=== PATIENT | male | born 1950 | race Caucasian/White ===

== ENCOUNTER 2016-12-05 08:58 | Observation (INO) | payer MEDICARE ==
[~2016-12-05] VITALS: Ht 175.3 cm; Wt 123.2 kg
--- NOTE | ~2016-12-05 | HEMODYNAMI ---
PATIENT:PAULINO AUSTIN MEDICAL RECORD: [id number] : 52 [id number] ADMISSION DATE: 12/05/16 Generatedon:12/06/20169:09 Patient name: PAULINO AUSTIN Patient #: [id number] SSN: : 1950 Date of study: 12/06/2016 Page: Of Hemodynamic Procedure Report Patient Data Patient Demographics Procedure consent was obtained First Name: PAULINO Gender: Male Last Name: NORMAN : 1950 Middle Initial: CARLA Age: 66 year(s) Patient #: [id number] Race: Unknown Additional ID: [id number] Contact details Address: [address] [place] [address] State: [place] City: [place] Zip code: [address] Admission Admission Data Admission Date: 12/05/2016 Admission Time: 13:29 Room #: D.2117 Procedure Procedure Types Cath Procedure Diagnostic Procedure LHC LHC w/Coronaries FFR/IVUS Intra-Coronary IVUS Initial Miscellaneous Procedures Moderate Sedation up to 15 minutes Procedure Description Procedure Date Procedure Date: 12/06/2016 Procedure Start Time: 8:54 Procedure End Time: 9:08 Procedure Staff Name Function Atif Neal MD Performing Physician Diamante Castro RN Nurse Jerry Lopez RT Monitor Mckenna Bhagat RT Scrub Procedure Data Cath Procedure Fluoroscopy Diagnostic fluoroscopy Total fluoroscopy Time: 2.8 time: 2.8 min min Diagnostic fluoroscopy Total fluoroscopy dose: 706 dose: 706 mGy mGy Contrast Material Contrast Material Type Amount (ml) Isovue 300 61 Entry Location Entry Primary Successful Side Size Upsize Upsize Entry Closure Succes sful Closure Location (Fr) 1 (Fr) 2 (Fr) Remarks Device Remarks Femoral Right 5 Fr Exoseal artery Estimated blood loss: 10 ml Diagnostic catheters Device Type Used For End Catheter Placement Cordis 5Fr Pigtail Procedure Catheter (MP) Cordis 5Fr JL 4.0 Procedure Catheter (MP) Cordis 5Fr 3DRC Catheter Procedure (MP) Procedure Complications No complications Procedure Medications Medication Administration Route Dosage Plavix P.O. 75 mg Oxygen NC 2 l/min Heparin Flush Bag added to field 2 bags (1000units/500ml NS) Lidocaine 2% added to field 20 Versed I.V. 1 mg Fentanyl I.V. 50 mcg Versed I.V. 1 mg Fentanyl I.V. 50 mcg Versed I.V. 1 mg Fentanyl I.V. 50 mcg Versed I.V. 1 mg Fentanyl I.V. 50 mcg Hemodynamics Rest Heart Rate: 53 (bpm) Pressure Samples Time Site Value (mmHg) Purpose Heart Use Rate(bpm) 9:01 AO 121/83(99) Snapshot 64 Snapshots Pre Cath Intra NCS Post Cath Vital Signs Time Heart Resp SPO2 NIBP (mmHg) Rhythm Pain Sedation Rate (ipm) (%) Status Level (bpm) 8:26:19 51 16 97 153/87(135) SB 0 (11) 10(A) , No pain 8:30:33 53 18 98 155/91(134) SB 0 (11) 10(A) , No pain 8:34:49 53 16 97 152/90(134) SB 0 (11) 10(A) , No pain 8:39:03 54 20 96 146/88(121) SB 0 (11) 10(A) , No pain 8:43:19 58 23 96 151/87(108) SB 0 (11) 10(A) , No pain 8:47:33 59 16 95 145/83(121) SB 0 (11) 10(A) , No pain 8:51:47 58 18 96 140/84(127) SB 0 (11) 10(A) , No pain 8:55:57 57 16 95 135/87(105) SB 0 (11) 9(A) , No pain 9:00:07 58 16 95 150/89(106) SB 0 (11) 9(A) , No pain 9:04:17 67 19 96 138/90(114) SB 0 (11) 9(A) , No pain 9:08:29 59 9 93 131/80(115) SB 0 (11) 9(A) , No pain Medications Time Medication Route Dose Verified Delivered Reason Notes Eff ectiveness by by 8:21:07 Plavix P.O. 75 mg Atif Vossca for Ángel Castro RN antiplatelet therapy 8:28:36 Oxygen NC 2 Atif Diamante Per l/min Ángel Castro RN physician 8:28:43 Heparin Flush added 2 Atif Atif used for Bag to bags Ángel Neal MD procedure (1000units/500ml field NS) 8:28:50 Lidocaine 2% added 20ml Atif Atif used for to vial Ángel Neal MD procedure field 8:46:42 Versed I.V. 1 mg Atif Diamante for sedation Ángel Castro RN 8:46:48 Fentanyl I.V. 50 Atif Diamante for sedation mcg Ángel Castro RN 8:48:37 Versed I.V. 1 mg Atif Diamante for sedation Ángel Castro RN 8:48:45 Fentanyl I.V. 50 Atif Diamante for sedation mcg Ángel Castro RN 8:51:33 Versed I.V. 1 mg Atif Diamante for sedation Ángel Castro RN 8:51:36 Fentanyl I.V. 50 Atif Diamante for sedation mcg Ángel Castro RN 8:54:04 Versed I.V. 1 mg Atif Diamante for sedation Ángel Castro RN 8:54:10 Fentanyl I.V. 50 Atif Diamante for sedation mcg Ángel Castro data center solutions architect Log Time Note 8:00:06 Jerry Lopez RT(R) sent for patient. Start room use. 8:06:07 Time tracking: Regular hours 8:06:11 Plan of Care:Hemodynamics will remain stable., Cardiac rhythm will remain stable., Comfort level will be maintained., Respiratory function will remain adequate., Patient/ family verbilizes understanding of procedure., Procedure tolerated without complication., Recovers from procedure without complications.. 8:20:43 Patient received from PCU to CCL 2 Alert and oriented. Tansferred to table in Supine position. 8:20:44 Warm blankets applied, and trisha hugger turned on for patient comfort. 8:20:45 Correct patient and procedure confirmed by team. 8:20:46 Signed procedure consent form obtained from patient. 8:20:47 ECG and BP/O2 sat monitors applied to patient. 8:21:07 Plavix 75 mg P.O. was administered by Diamante Castro RN; for antiplatelet therapy; 8:25:12 Vital chart was started 8:25:13 Baseline sample Acquired. 8::28 Rhythm: sinus bradycardia 8::29 Full Disclosure recording started 8:26:54 H&P Date Dictated: 12/05/2016 Within 30 days and on chart.. 8:26:55 Pre-procedure instructions explained to patient. 8:26:56 Pre-op teaching completed and patient verbalized understanding. 8:26:58 Family unavailable. 8:27:00 Patient NPO since Midnight. 8:27:02 Is the patient allergic to Iodine/contrast media? No. 8:27:03 Is patient on blood thinner?Yes 8:27:07 ACC The patient was administered the following blood thiners within the last 24 hours: ACCPlavix 8:27:09 Patient diabetic? No. 8:27:12 Previous problem with sedation/anesthesia? No ? 8:27:13 Snore? Yes 8:27:13 Sleep apnea? No 8:27:14 Deviated septum? No 8:27:15 Opens mouth fully? Yes 8:27:16 Sticks out tongue? Yes 8:27:19 Airway obstruction? Yes COPD 8:27:23 Dentures? Yes OUT 8:27:29 Pre procedure: right dorsailis pedis pulse 1+ Palpable, but thready & weak; easily obliterated 8:27:30 Unable to go radial due to right wrist IV. 8:27:31 Patient pain scale 0/10 ?. 8:27:36 IV patent on arrival in right wrist with 0.9% NaCl at O. 8:27:38 Lab results completed and on chart. 8:27:42 Right groin area was prepped with chlora-prep and draped in sterile fashion 8:27:43 Alarms reviewed by R. N. 8:27:43 Sharps counted by scrub and verified by R.N. 8:28:36 Oxygen 2 l/min NC was administered by Diamante Castro RN; Per physician; 8:28:43 Heparin Flush Bag (1000units/500ml NS) 2 bags added to field was administered by Atif Neal MD; used for procedure; 8:28:50 Lidocaine 2% 20ml vial added to field was administered by Atif Neal MD; used for procedure; 8:38:27 Baseline sample Acquired. 8:40:12 Use device set Femoral Dx 8:40:15 Tegaderm 4 x 4 opened to sterile field. 8:40:16 Acist Manifold opened to sterile field. 8:40:17 Acist Hand Control opened to sterile field. 8:40:19 Acist Syringe opened to sterile field. 8:40:19 Bag Decanter opened to sterile field. 8:40:19 Medline Cath Pack opened to sterile field. 8:40:20 Terumo 5Fr Melvern Sheath opened to sterile field. 8:40:20 St Andreas 260cm J .035 wire opened to sterile field. 8:40:21 Diagnostic Infinity 5Fr Multipack catheter opened to sterile field. 8:42:25 IV Extension Set opened to sterile field. 8:44:53 Zero performed for pressure channel P1 8:45:30 --------ALL STOP TIME OUT------ 8:45:31 Final Timeout: patient, procedure, and site verified with staff and physician. All members of the team are in agreement. 8:45:38 Right groin site verified by team. 8:45:42 Physical assessment completed. ASA score P 2 - A patient with mild systemic disease as per Atif Neal MD. 8:45:45 Sedation plan: IV Moderate Sedation Versed, Fentanyl 8:46:42 Versed 1 mg I.V. was administered by Diamante Castro RN; for sedation; 8:46:48 Fentanyl 50 mcg I.V. was administered by Diamante Castro RN; for sedation; 8:48:37 Versed 1 mg I.V. was administered by Diamante Castro RN; for sedation; 8:48:45 Fentanyl 50 mcg I.V. was administered by Diamante Castro RN; for sedation; 8:51:33 Versed 1 mg I.V. was administered by Diamante Castro RN; for sedation; 8:51:36 Fentanyl 50 mcg I.V. was administered by Diamante Castro RN; for sedation; 8:54:01 Procedure started. 8:54:04 Versed 1 mg I.V. was administered by Diamante Castro RN; for sedation; 8:54:10 Fentanyl 50 mcg I.V. was administered by Diamante Castro RN; for sedation; 8:54:51 Local anesthetic to right femoral artery with Lidocaine 2% by Atif Neal MD.INITIAL ACCESS ONLY 8:55:11 A 5 Fr sheath was inserted into the Right Femoral artery 8:55:39 A Cordis 5Fr Pigtail Catheter (MP) was advanced over the wire and used for Procedure. 8:55:48 LV angiography performed. 8:55:49 LV gram done using GREER 8:55:54 EF : 60 % 8:55:58 Injector settings: Ml/sec: 10, Volume: 20, 8:56:03 Catheter removed. 8:56:09 A Cordis 5Fr JL 4.0 Catheter (MP) was advanced over the wire and used for Procedure. 8:57:04 LCA angiography performed. 8:57:30 Catheter removed. 8:57:39 A Cordis 5Fr 3DRC Catheter (MP) was advanced over the wire and used for Procedure. 8:58:07 RCA angiography performed. 8:58:15 Catheter removed. 8:59:04 MK Automot[employer] Launcher 5Fr AR 2.0 guide catheter opened to sterile field. 8:59:05 Mosquera Whisper J 300cm 0.014 guide wire opened to sterile field. 8:59:05 [place] IVUS Catheter opened to sterile field. 8:59:05 [email or web address] BasixCompak Inflation Kit opened to sterile field. 8:59:44 5 Fr AR 2 guide catheter was inserted over the wire 9:01:12 Whisper wire advanced. 9:01:54 Wire advanced across lesion. 9:01:56 IVUS catheter advanced over wire. 9:02:31 IVUS pass to RCA lesion performed. 9:02:43 IVUS catheter removed over wire. 9:02:47 Wire removed. 9:02:48 Guide catheter removed. 9:02:57 Cordis 5Fr Exoseal opened to sterile field. 9:03:32 Sheath removed intact; hemostasis achieved with Exoseal to the Right Femoral artery. 9:03:35 Procedure ended.(Physican Out) 9:04:27 Fluoroscopy time 02.80 minutes. 9:04:32 Fluoroscopy dose: 706 mGy 9:04:32 Flurop Dose total: 706 9:04:43 Contrast amount:Isovue 300 61ml. 9:04:44 Sharps counted by scrub and verified by R.N. 9:04:46 Insertion/operative site no bleeding no hematoma. 9:04:49 Post-op/insertion site Right Femoral artery dressed using a 4 x 4 and Tegaderm. 9:04:50 Post Procedure Pulses reassessed and unchanged 9:04:52 Post-procedure physical assessment completed. ASA score P 2 - A patient with mild systemic disease as per Atif Neal MD. 9:04:55 Post procedure rhythm: unchanged. 9:05:00 Estimated blood loss: 10 ml 9:05:01 Post procedure instruction explained to patient.Patient verbalizes understanding. 9:05:01 Patient needs reinforcement of post procedure teaching. 9:05:10 Procedure type changed to Cath procedure, Diagnostic procedure, LHC, LHC w/Coronaries, FFR/IVUS, Intra-Coronary IVUS Initial, Miscellaneous Procedures, Moderate Sedation up to 15 minutes 9:05:18 Procedure and supply charges have been captured, reviewed, submitted and are correct. 9:05:22 Procedure Complication : No complications 9:08:34 Vital chart was stopped 9:08:35 See physician's report for complete and final results. 9:08:36 Report given to PCU. 9:08:40 Patient transfered to PCU with Bed. 9:08:41 Procedure ended. 9:08:41 Full Disclosure recording stopped 9:08:54 End room use (Document Last) Device Usage Item Name Manufacture Quantity Catalog Hospital Part Current Minimal L ot# / Number Charge Number Stock Stock Serial# Code Tegaderm 4 3M 1 [id number] 384260 [id number] 5 x 4 Acist Acist 1 80665 441995 197840 907224 5 Manifold Medical Systems Inc Acist Hand Acist 1 79269 670026 161111 882649 5 Control Medical Systems Inc Acist Acist 1 11120 396118 109815 359531 20 Syringe Medical Systems Inc Bag Microtek 1 2001S 996419 96088 105513 5 Decanter Medical Inc. Medline Cardinal 1 [id number] 719753 36284 473034 5 Cath Pack Health Terumo 5Fr Terumo 1 [id number] 227918 385979 299372 [address] St Andreas 1 429207 755322 617359 469426 30 260cm J .035 wire Diagnostic Cardinal 1 [id number] 506969 24451 385594 30 Infinity Health 5Fr Multipack catheter IV Hospira 1 63143-16 464690 06962 072266 5 Extension Set Cordis 5Fr Cardinal 1 549980 5 Pigtail Health Catheter (MP) Cordis 5Fr Cardinal 1 214947 5 JL 4.0 Health Catheter (MP) Cordis 5Fr Cardinal 1 117203 5 3DRC Health Catheter (MP) Medtronic Medtronic 1 [id number] 293062 508196 629250 1 Launcher 5Fr AR 2.0 guide catheter Mosquera Mosquera 1 [id number] 040288 800473 260257 5 Whisper J Vascular 300cm 0.014 guide wire [place] 1 [id number] 536779 413413 860308 8 [place] Eag[place] IVUS Catheter [facility] 1 [id number] 226173 595506 837149 15 [facility] Medical Inflation Kit Cordis 5Fr Cardinal 1 EX500 910930 301922 709647 10 [facility] YouStream Sport Highlights Signature Audit Braymer Stage Time Signature Unsigned Intra-Procedure 12/06/2016 Jerry Lopez 9:09:39 AM RT(R) Signatures Monitor : Jerry Lopez RT Signature : Date : Time : [id number] [place] [address]
--- NOTE | ~2016-12-05 | OP ---
PATIENT NAME: PAULINO AUSTIN MEDICAL RECORD: [id number] :52 LOCATION:D.M2 D.2117 ADMISSION DATE:12/05/16 SURGEON: AMITA NELSON MD DATE OF OPERATION: 12/06/2016 PROCEDURES: 1. Left heart catheterization. 2. Selective coronary angiography. 3. Left ventriculogram. 4. Intravascular ultrasound. INDICATION: Chest pain compatible with angina. PROCEDURE IN DETAIL: After informed consent was obtained and after detailed explanation of risks, benefits as well as alternative therapies, the patient elected to proceed with angiogram and heart catheterization. The right femoral area was prepped and draped in normal sterile fashion. The right femoral artery was cannulated via modified Seldinger technique with placement of 5-Telugu sheath. All catheters exchanged through this sheath. FINDINGS: The left ventriculogram was performed in standard 30-degree GREER view, reveals good cardiac wall motion throughout all segments. Overall ejection fraction estimated at 60%. SELECTIVE CORONARY ANGIOGRAPHY: 1. Left main is with no significant angiographic disease. 2. Left anterior descending has moderate irregularities, but no flow-limiting stenosis. 3. The right coronary has a questionable stenosis in the mid vessel; however, the intravascular ultrasound reveals that this is no greater than 20% stenosis. 4. The left circumflex has moderate irregularities, but no flow-limiting stenosis. OVERALL IMPRESSION: No significant coronary artery disease is present. Preserved left ventricular function. Symptomatology is noncardiac in etiology. TRANSINT:[id number] Voice Confirmation ID: [id number] DOCUMENT ID: [id number] AMITA NELSON MD CC: [id number] DICTATION DATE: 12/06/16907 CHEMIST STEROIDS: 12/06/16 1148 DIS IN 12/06/16 [facility] [address] [place] [address]
--- NOTE | ~2016-12-05 | DS ---
PATIENT:PAULINO AUSTIN :52 MEDICAL RECORD: [id number] DISCHARGE SUMMARY ADMISSION DATE: 12/05/16 DISCHARGE DATE: 12/06/16 DISCHARGE DIAGNOSES: 1. Chest pain. 2. Normal cardiac catheterization. 3. Hypertension. 4. Hyperlipidemia. HOSPITAL COURSE: This is a gentleman who presents with anginal symptomatology. He had underwent nuclear stress testing by Dr. Noe in our clinic. This was abnormal, planned for cardiac catheterization. He continues to have the shortness of breath and atypical chest pain. Cardiac catheterization revealed no significant disease. Most likely his symptomatology is secondary to his COPD. No other cardiac workup or treatment is necessary. No cardiac followup is necessary. TRANSINT:[id number] Voice Confirmation ID: [id number] DOCUMENT ID: [id number] AMITA NELSON MD CC: [id number] DICTATION DATE: 12/06/16906 GLASS CYLINDER FLANGER: 12/07/16 0104 DIS IN 12/06/16 [facility] [address] [place] [address]
[2016-12-05 10:11] LABS: BASOPHILS 0.5 % (0-2); EOSINOPHILS 4.8 % (0-7); HEMATOCRIT 46.9 % (42.0-54.0); HEMOGLOBIN 15.1 g/dL (13.5-17.5); IMMATURE GRANULOCYTES 0.5 % (0-5); LYMPHOCYTES 24.1 % (15-50); MCH 28.2 pg (26.0-34.0); MCHC 32.2 g/dL (31.0-37.0); MCV 87.5 fL (80.0-100.0); MEAN PLATELET VOLUME 9.5 fL (7.4-10.4); MONOCYTES 6.3 % (2-11); NEUTROPHILS 63.8 % (40-80); PLATELET COUNT 210 10x3/uL (130-400); RBC 5.36 10x6/uL (4.20-6.10); RDW 13.7 % (11.5-14.5); WBC 9.8 10x3/uL (4.8-10.8)
[2016-12-05 10:21] LABS: INR 0.96 (0.85-1.17); PROTIME 12.7 SECONDS (11.6-15.0)
[2016-12-05 10:26] LABS: ALBUMIN 3.5 g/dL (3.4-5.0); ALKALINE PHOSPHATASE 88 U/L (46-116); ALT (SGPT) 38 U/L (10-68); CALC OSMOLALITY 282 mosm/kg (275-300); CALCIUM 8.7 mg/dL (8.5-10.1); CARBON DIOXIDE 32.5 mmol/L (21.0-32.0); CHLORIDE - SERUM 102 mmol/L (98-107); CREATININE - SERUM 1.4 mg/dL (0.6-1.3); GLUCOSE 115 mg/dL (74-106); PROTEIN - SERUM 7.4 g/dL (6.4-8.2); SODIUM 140 mmol/L (136-145); UREA NITROGEN 20 mg/dL (7-18); eGFR NON AFRICAN AMERICAN 54 mL/min (90-120)
[2016-12-05 10:35] LABS: CREATINE KINASE 168 UL (21-232); TROPONIN-I < 0.017 ng/mL (0.000-0.060)
[2016-12-05] MEDS ORDERED: ZOCOR40 MG PO (13:59)
[2016-12-05] MEDS ORDERED: HYZAAR 100-25 T1 TAB PO (13:59)
[2016-12-05] MEDS ORDERED: HYTRIN5 MG PO (14:00)
[2016-12-05] MEDS ORDERED: KLONOPIN1 MG PO (14:01)
[2016-12-05] MEDS ORDERED: BAYER CHEWABLE81 MG PO (14:02)
[2016-12-05 14:15] VITALS: BP 128/67; Ht 175.3 cm; Wt 123.2 kg
--- NOTE | 2016-12-05 14:29 | NUR ---
RECIEVED FROM ER. ALERT AND ORIENTED. UP AB EMMA. TELEMERTY SHOWS SINUS NALLELY AT 57. IV TO RIGHT WRIST. DENIES ANY PAIN AT PRESENT TIME. CALL LIGHT IN REACH WITH SR UP. WILL MONITOR .
--- NOTE | 2016-12-05 16:11 | NUR ---
LYING QUIETLY. DENIES ANY PAIN. TELEMERTY SHOWS SB. AWITING DR FOR FUTHER ORDERS
--- NOTE | 2016-12-05 18:28 | NUR ---
FAMILY AT BEDSIDE. NO NEEDS VOICED. PERMITS FOR CATH SIGNED.
[2016-12-05 19:00] VITALS: BP 114/69
--- NOTE | 2016-12-05 20:00 | NUR ---
PT RESTING IN BED. ALERT/ORIENTED. PIV TO RIGHT WRIST. SR/SB PER TELEMETRY. WILL BE NPO AT MIDNIGHT FOR HEART CATH IN AM. SEE ASSESSMENT. CPOC.
[2016-12-06 04:14] VITALS: BP 130/79
[2016-12-06 08:49] VITALS: BP 139/75
--- NOTE | 2016-12-06 09:05 | HP ---
PATIENT: PAULINO AUSTIN MEDICAL RECORD: [id number] ACCOUNT: [id number] LOCATION:. D.2117 : 52 ADMISSION DATE: 12/05/16 HISTORY AND PHYSICAL EXAMINATION DIAGNOSES: 1. Unstable angina. 2. Abnormal nuclear stress test. 3. Hypertension. 4. Hyperlipidemia. HISTORY OF PRESENT ILLNESS: This is a gentleman with no previous cardiac history. He has been having chest pain, underwent stress testing, this was positive for inducible ischemia. He continues to have angina unstable fashion, now presents to the Emergency Room with this. His troponin is normal, but he continues to have the episodes of chest pain. PHYSICAL EXAMINATION: GENERAL APPEARANCE: Well-nourished, well-developed, appears stated age. Level of distress, comfortable. PSYCHIATRIC: Mental status, alert, normal affect. Orientation, oriented to time, place and person. EYES: Lids and conjunctiva, noninjected. No discharge, no pallor. ENT: Lips, teeth, gums, normal dentition. Oropharynx, no cyanosis, no pallor. NECK: Carotid arteries, bilateral normal upstroke, no bruits, no thrills. JUGULAR VEINS: No jugular venous pressure or distention. CERVICAL LYMPH NODES: Nontender, nonenlarged. THYROID: Not enlarged. Nontender. No nodules. LUNGS: Respiratory effort, unlabored. CHEST: Normal curvature. No thoracic deformity. No chest wall tenderness. Percussion, resonant. Auscultation, clear. No wheezes, no rales, no rhonchi. CARDIOVASCULAR: Precordial exam, nondisplaced. No heaves or pericardial thrills. Rate and rhythm, regular. Heart sounds, normal S1, normal S2. No S3, no gallop, no rub. Systolic murmur, not heard. Diastolic murmur, not heard. EXTREMITIES: No cyanosis, no edema. Peripheral pulses, full and equal in all extremities, except as noted. No bruits appreciated. ABDOMEN: Soft, nondistended. Normal aorta. No bruit. Nontender. No masses. Liver, nontender, no hepatomegaly. Spleen, nontender, no splenomegaly. MUSCULOSKELETAL: No joint tenderness. No joint swelling. No erythema. NEUROLOGICAL: Normal gait, normal strength, normal tone. SKIN: Warm and dry. REVIEW OF SYSTEMS: The patient reports easy bruising but reports no swollen glands. The patient reports no fever, no night sweats, no significant weight gain, no significant weight loss. No significant exercise tolerance. The patient reports no dry eyes, no irritation, no vision change. Patient reports no difficulty hearing and no ear pain. Patient reports no frequent nose bleeds or nose and sinus problems. Patient reports on arm pain on exertion. No shortness of breath while lying down. No history of heart murmur. Patient reports no cough, no wheezing or coughing up blood. Patient reports no abdominal pain, no vomiting. Normal appetite. No diarrhea and not vomiting blood. No nausea and no constipation. Patient reports no incontinence. No difficulty urinating. No hematuria. No increased frequency. Patient reports no muscle aches. No weakness, no arthralgias, no back pain. No swelling of the extremities. Patient reports no abnormal mole, no jaundice, no rashes. Reports HISTORY AND PHYSICAL [id number] PAULINO AUSTIN no loss of consciousness. No weakness and no numbness. No seizures, dizziness, or headaches. The patient reports no depression, no sleep disturbance, feeling safe in a relationship and no alcohol abuse. Patient reports on fatigue. Reports no runny nose or sinus pressure. No itching, no hives, and no frequent sneezing. OVERALL IMPRESSION: Chest pain compatible with angina, most likely has recurrent hemodynamically significant coronary artery disease. We will proceed with coronary angiography. Further care depends upon findings of the angiography. TRANSINT:[id number] Voice Confirmation ID: [id number] DOCUMENT ID: [id number] AMITA NELSON MD at 0905 CC: [id number] DICTATION DATE: 12/05/16 1647 [employer]BER SYSTEMS OPERATIONS SPECIALIST: 12/05/162028 ADM IN [address] [place] [address]
--- NOTE | 2016-12-06 09:30 | NUR ---
BACK FROM STOCK CHASER. VS WNL. RIGHT GROIN STABLE WITHOUT BLEEDING OR HEMATOMA NOTED. WILL MONITOR.
--- NOTE | 2016-12-06 11:20 | NUR ---
BED REST UP. GROIN STABLE.
--- NOTE | 2016-12-06 11:34 | NUR ---
IV AND TELEMETRY DCD. DC PLANS GIVEN. UNDERSTANDING VOICED. ESCORTED TO CAR BY W/C.
== END 2016-12-06 11:35 | disposition home or self-care (01) ==
LOC: D.ER 08:58 → D.M2 13:29 → OBSVTIME 13:29 → D.M2 12-06 11:35
PROVIDERS: Emergency Medicine; Nurse Practitioner Family; ADMIT Internal Medicine Interventional Cardiology
DX: R07.89 Other chest pain (principal); I10 Essential (primary) hypertension; E78.5 Hyperlipidemia, unspecified